=== PATIENT | male | born 1970 | race Caucasian/White ===

== ENCOUNTER 2023-01-02 17:21 | Inpatient (IN) ==
[2023-01-02] MEDS ORDERED: PIPERACILLIN/TAZOBACTAM 4.5 GM/120 ML BAG IV ONE (18:03)
[2023-01-02] MEDS ORDERED: VANCOMYCIN HCL 1,750 MG in SODIUM CHLORIDE 0.9% 500 ML IV ONE (18:03)
[2023-01-02] MEDS ORDERED: VANCOMYCIN CONSULT ACTIVE PRN ×2 (18:03→23:18)
--- NOTE | 2023-01-02 18:17 | Emergency Department Note ---
ED Provider Note History of Present Illness Chief Complaint: Referred by Doctor Stated Complaint: REPEAT CHEST XRAY, Time Seen by Provider: 01/02/23 17:28 Source: patient Mode of arrival: ambulatory Limitations: no limitations This patient is a 52-year-old male who presents to the emergency department for repeat chest x-ray. Patient reports that he was seen here late night/early Tuesday morning when he was run over by a lawn aerator and sustained puncture wounds to the right forearm and the back. He was called after discharge and told that his CT showed a small pneumothorax and was recommended to come back for a repeat x-ray in 24 to 48 hours. Patient states that he is not having any chest pain or shortness of breath. He does state that the wound on his right arm has had some drainage from it and he is now having redness of his right arm as well. He states it does feel swollen, tight and painful. He denies any fever/chills. He states the wound on his back appears to be healing well. Home Medications Medication Instructions Recorded Confirmed Type clonazepam 0.5 mg tablet 0.5 mg PO DAILY PRN Anxiety 05/13/22 01/02/23 History ibuprofen 200 mg tablet 400 mg PO Q6H PRN Pain 05/13/22 01/02/23 History sertraline 100 mg tablet 100 mg PO DAILY 05/13/22 01/02/23 History amoxicillin 875 mg-potassium 1 tab PO BID #14 tabs 12/31/22 01/02/23 Rx clavulanate 125 mg tablet oxycodone-acetaminophen 5 mg-325 1 tab PO Q6H PRN pain #14 tabs 12/31/22 01/02/23 Rx mg tablet (Percocet) Allergies Allergy/AdvReac Type Severity Reaction Status Date / Time No Known Allergies Allergy Verified 01/02/23 19:14 Past Med/Surg History Surgical History History of intestinal surgery bowel obstruction in 2013 Family History Other No significant family history Social History (Updated 01/02/23 @ 21:37 by Genesis Mcfadden DO) Smoking Status: Never smoker Hx Alcohol Use: Yes (2-3 beers daily) Alcohol type: beer Preferred Language: Albanian Feels Safe at Home: Yes Physical Exam Vital Signs Vital Signs - 24 hr 01/02/23 17:23 01/02/23 22:00 Temperature 36.6 C Temperature Source Temporal Artery Scan Pulse Rate 72 Pulse Rate [Apical] 68 Pulse Rhythm Regular Pulse Strength Normal Respiratory Rate 18 17 Respiratory Effort / Characteristics Non-Labored Spontaneous Respiratory Depth Normal Respiratory Pattern Regular Blood Pressure 122/85 Blood Pressure [Right Arm] 122/74 Blood Pressure Mean 97 Blood Pressure Mean [Right Arm] 90 Blood Pressure Position Sitting Pulse Oximetry 97 98 Oxygen Delivery Method Room Air Sepsis Recent Fever Within 48 Hours No Sepsis New/Unexplained Change in Mental Status No Sepsis Action Taken by Nursing No Action Required VITALS: Vitals are noted on the nurse's note and reviewed by myself. GENERAL: This is a 52-year-old male, in no acute distress, well-developed well- nourished. SKIN: There is a puncture wound on the right forearm with purulent drainage. There is surrounding erythema which extends from the distal forearm to the proximal upper arm. HEART: Regular rate and rhythm without murmurs gallops or rubs. LUNGS: Clear to auscultation bilaterally without wheezes, rales or rhonchi. MUSCULOSKELETAL: Full range of motion of the right upper extremity. Radial pulse 2+. NEURO: Patient was alert and oriented to person place and time. Distal sensation intact. Course Administered Medications Discontinued Medications Piperacillin Sod/Tazobactam Sod (Zosyn) 4.5 gm in 120 mls @ 240 mls/hr IV NOW ONE Stop: 01/02/23 18:32 Last Infusion: 01/02/23 19:13 Dose: 0 mls/hr Documented By: Admin: 01/02/23 18:35 Dose: 240 mls/hr Documented By: KALYN Vancomycin HCl 1,750 mg/ (Sodium Chloride) 535 mls @ 200 mls/hr IV NOW ONE Stop: 01/02/23 20:43 Last Admin: 01/02/23 19:22 Dose: 200 mls/hr Documented By: AROLDO Medical Decision Making Differential Diagnosis Cellulitis, abscess, MRSA infection, DVT, necrotizing fasciitis, dermatitis, drug eruption, allergic reaction, as well as other pathologies. Home Medications was personally reviewed by me Laboratory Data Attestation: I reviewed the patient's lab results. 01/02/23 18:21 01/02/23 18:21 Lab Results 01/02/23 01/02/23 Range/Units 18:21 18:21 WBC 7.87 (4.8-10.8) K/ul RBC 4.16 L (4.70-6.10) M/uL Hgb 13.4 L (14.0-18.0) g/dl Hct 38.3 L (42.0-52.0) % MCV 92.1 (80.0-100.0) fL MCH 32.2 (25.0-34.0) pg MCHC 35.0 (32.0-36.0) g/dL RDW Std Deviation 40.5 (36.4-46.3) fL RDW Coeff of Ivy 12.0 (11.5-14.5) % Plt Count 151 (130-400) K/uL MPV 10.4 (9.4-12.4) fL Immature Gran % (Auto) 0.5 % Neut % (Auto) 81.3 % Lymph % (Auto) 11.7 % [place] % (Auto) 5.7 % Eos % (Auto) 0.3 % Baso % (Auto) 0.5 % Neut # (Auto) 6.40 (1.40-6.50) K/uL Lymph # (Auto) 0.92 L (1.2-3.4) K/uL [place] # (Auto) 0.45 (0.11-0.59) K/uL Eos # (Auto) 0.02 (0-0.50) K/uL Baso # (Auto) 0.04 (0-0.2) K/uL Immature Gran # (Auto) 0.04 (0.01-0.20) K/uL Sodium 136 (136-145) mmol/L Potassium 4.0 (3.5-5.1) mmol/L Chloride 105 (98-107) mmol/L Carbon Dioxide 23 (21-32) mmol/L Anion Gap 8 (3-11) BUN 9 (6-23) mg/dl Creatinine 0.76 (0.6-1.4) mg/dl Est Cr Clr Drug Dosing 126.2 ml/min Est GFR ( Amer) 122.4 ml/min Est GFR (Non-Af Amer) 105.6 ml/min BUN/Creatinine Ratio 11.8 (10-20) Glucose 98 (70-99(Fasting)) mg/dl Calcium 9.3 (8.6-10.3) mg/dl Total Bilirubin 0.9 (0.2-1.0) mg/dl AST 27 (13-39) U/L ALT 25 (7-52) U/L Alkaline Phosphatase 65 (34-104) U/L Total Protein 7.4 (6.0-8.3) gm/dl Albumin 4.2 (3.4-5.0) gm/dl Globulin 3.2 (2.5-4.0) gm/dl Albumin/Globulin Ratio 1.3 (0.9-2) Imaging Data Attestation: I personally reviewed and interpreted this imaging study as follows: Radiologist's Impression: Chest X-Ray 01/02/23 18:14 XR chest 2V PA/lateral CLINICAL HISTORY: eval pneumothorax from 12/31 TECHNIQUE: 2 views of the chest were obtained. Comparison: Comparison is made to chest radiograph 12/30/2022 FINDINGS: No lines and tubes are seen. The cardiomediastinal silhouette is normal. Lungs are underinflated but clear. No evidence of pleural effusion or pneumothorax. IMPRESSION: No acute chest disease. ACT 112: Negative or not required by law. Electronically signed by: Vito Aparicio M.D. 01/02/2023 7:08 PM MDM Narrative This patient is a 52-year-old male who presents to the emergency department for evaluation of right forearm infection and recheck of a chest x-ray. Patient was here 2 days ago after an injury. At that time he was found to have a small apical pneumothorax on CT. He was referred back for a repeat chest x-ray today. This was performed and reviewed by radiology with no pneumothorax noted. However, patient did sustain a puncture wound to the right forearm which now appears to be infected. Patient is currently on Augmentin for infection pro phylaxis and given the development of an extensive cellulitis covering most of the arm, I do think that admission for IV antibiotics is necessary. Patient was given IV Zosyn and vancomycin. Orthopedics was consulted and did recommend medical admission and will consult on the patient tomorrow. I spoke with the [facility] hospitalist service, who agreed to evaluate patient for further care. Impression Cellulitis of forearm, right, Failure of outpatient treatment Discharge Plan Visit Data Chief Complaint: Referred by Doctor Stated Complaint: REPEAT CHEST XRAY, ED Provider: Jayme Hutchinson ED Midlevel Provider: Ada Escalera Discharge Problem: Cellulitis of forearm, right, Failure of outpatient treatment Forms Stand Alone Forms: [facility] Prescriptions Prescriptions: No Action amoxicillin-pot clavulanate 875-125 mg tablet 1 tab PO BID Qty: 14 0RF oxycodone-acetaminophen [Percocet] 5-325 mg tablet 1 tab PO Q6H PRN (Reason: pain) Qty: 14 0RF clonazepam 0.5 mg tablet 0.5 mg PO DAILY PRN (Reason: Anxiety) sertraline 100 mg tablet 100 mg PO DAILY ibuprofen 200 mg Tablet 400 mg PO Q6H PRN (Reason: Pain) Referrals Referrals: Krissy Lance DO [Primary Care Provider] -
[2023-01-02 18:48] LABS: Basophils # (auto) 0.04 K/uL (0-0.2); Basophils % (auto) 0.5 %; Eosinophils # (auto) 0.02 K/uL (0-0.50); Eosinophils % (auto) 0.3 %; Hematocrit (blood only) 38.3 % (42.0-52.0); Hemoglobin 13.4 g/dl (14.0-18.0); Immature Granulocytes # (auto) 0.04 K/uL (0.01-0.20); Immature Granulocytes % (auto) 0.5 %; Lymphocytes # (auto) 0.92 K/uL (1.2-3.4); Lymphocytes % (auto) 11.7 %; Mean Corpuscular Hemoglobin 32.2 pg (25.0-34.0); Mean Corpuscular Volume 92.1 fL (80.0-100.0); Mean Platelet Volume 10.4 fL (9.4-12.4); Monocytes # (auto) 0.45 K/uL (0.11-0.59); Monocytes % (auto) 5.7 %; Neutrophils % (auto) 81.3 %; Platelet Count 151 K/uL (130-400); RDW Standard Deviation 40.5 fL (36.4-46.3); Red Blood Count 4.16 M/uL (4.70-6.10); White Blood Count 7.87 K/ul (4.8-10.8)
[2023-01-02 19:02] LABS: Albumin Globulin Ratio 1.3 (0.9-2); Albumin Level 4.2 gm/dl (3.4-5.0); BUN Creatinine Ratio 11.8 (10-20); Bilirubin,Total 0.9 mg/dl (0.2-1.0); Calcium 9.3 mg/dl (8.6-10.3); Creatinine Clr Calc Pharmacy 126.2 ml/min; Est GFR (African American) 122.4 ml/min; Est GFR (Non-African American) 105.6 ml/min; Globulin 3.2 gm/dl (2.5-4.0); Total Protein 7.4 gm/dl (6.0-8.3)
--- NOTE | 2023-01-02 19:09 | XRay Report ---
XR chest 2V PA/lateral CLINICAL HISTORY: eval pneumothorax from 12/31 TECHNIQUE: 2 views of the chest were obtained. Comparison: Comparison is made to chest radiograph 12/30/2022 FINDINGS: No lines and tubes are seen. The cardiomediastinal silhouette is normal. Lungs are underinflated but clear. No evidence of pleural effusion or pneumothorax. IMPRESSION: No acute chest disease. ACT 112: Negative or not required by law. Electronically signed by: Vito Aparicio M.D. 01/02/2023 7:08 PM
--- NOTE | 2023-01-02 20:49 | History & Physical Report ---
Date of Service January 02, 2023 Assessment & Plan (1) Puncture wound: Plan: 52yo male with recent gardening accident involving a spike aerator resulting in puncture wound to right back and right forearm returns with worsening redness, swelling and streaking up the arm after being on Augmentin at home x 2 days. Patient is afebrile, HD stable and nontoxic in appearance. Wound on right arm with purulent drainage expressed. -Admit to medical -Monitor area of redness - patient reports that redness has improved since receiving antibiotics -Vancomycin and Zosyn -Wound care BID and PRN -Percocet and Ibuprofen as needed for pain -Orthopedic Surgery consultation appreciated (2) Pneumothorax: Plan: Trace apical pneumothorax noted on CT imaging from 12/30/22. Repeat CXR today is normal. Patient denies chest pain, pleuritic pain or SOB (3) Anxiety: Plan: Chronic. Stable -Continue Clonazepam -Continue Sertraline Patient is a daily drinker. No history of withdrawals. Monitor F/E/N - Heplock. Electrolytes WNL. NPO after midnight for possible OR Ppx - Low risk for DVT. Encourage ambulation with assistance as needed Code - Full per discussion with patient Dispo - Admit to medical History of Present Illness Chief Complaint: RUE wound, cellulitis Primary Care Provider: Krissy Lance DO Julio Maxwell is a pleasant 52yo male with no significant past medical history presenting with RUE cellulitis. On 12/30/22 PM patient was doing some yard work when a spike aerator accidentally rolled over him. He reports that his right arm got stuck and he pulled it out from the aerator causing a wound in the right forearm as well as a puncture wound to the right back. He was seen in the ER and had the wounds thoroughly irrigated. He was treated with a tetanus shot, NSS, pain control with Tylenol, Fentanyl, Toradol and received a dose of Cefazolin. He was discharged home with Oxycodone/Acetaminophen and Augmentin. He had a CT of the chest which was noted to have a trace right apical pneumothorax. Patient returns to the ER this evening for repeat CXR to followup on the previously noted pneumothorax. He does note increased redness of the forearm with streaking up the medial arm as well as increased swelling of the forearm. He has been changing his dressings at home and has had some purulent discharge. He denies chest pain, SOB, cough or pleuritic pain. Denies fever, chills, malaise, nausea. He took a Percocet at 18:30 but is having some increased pain at present. In the ER he is afebrile, HD stable, NAD ER Course: Vancomycin Zosyn Allergies Allergy/AdvReac Type Severity Reaction Status Date / Time No Known Allergies Allergy Verified 01/02/23 19:14 Home Medications Medication Instructions Recorded Confirmed Type clonazepam 0.5 mg tablet 0.5 mg PO DAILY PRN Anxiety 05/13/22 01/02/23 History ibuprofen 200 mg tablet 400 mg PO Q6H PRN Pain 05/13/22 01/02/23 History sertraline 100 mg tablet 100 mg PO DAILY 05/13/22 01/02/23 History amoxicillin 875 mg-potassium 1 tab PO BID #14 tabs 12/31/22 01/02/23 Rx clavulanate 125 mg tablet oxycodone-acetaminophen 5 mg-325 1 tab PO Q6H PRN pain #14 tabs 12/31/22 01/02/23 Rx mg tablet (Percocet) Past Med/Surg History Surgical History History of intestinal surgery bowel obstruction in 2013 Family History Other No significant family history Social History (Updated 01/02/23 @ 21:37 by Genesis Mcfadden DO) Smoking Status: Never smoker Hx Alcohol Use: Yes (2-3 beers daily) Alcohol type: beer Preferred Language: Honduran Feels Safe at Home: Yes Review of Systems Review of Systems: All systems reviewed & are unremarkable except as noted in HPI & below Physical Exam Physical Exam: General: patient resting comfortably, NAD, non-toxic in appearance, AA&O x 4 Skin: warm, dry HEENT: NC/AT, PERRL, EOMI, anicteric sclera, conjunctiva without injection, external ear normal to inspection and nontender, nares patent, moist mucus membranes, dentition intact, no oropharyngeal lesions, neck supple, trachea midline, no LAD, no thyromegaly, no JVD Heart: +S1/S2, regular, no m/r/g Lungs: equal air entry bilaterally, no rales/rhonchi/wheezes Abd: +BS, soft, NT/ND, no masses/organomegaly/ascites Ext: warm, 2+ pulses in UE/LE bilaterally, no clubbing/cyanosis or edema Neuro: nonfocal, patient AA&O x 4, speech intact, no facial droop, moving all extremities on command with equal strength 5/5 RUE with dressing in place. Puncture wound with small amount of purulent drainage. Surrounding erythema with redness of the forearm, streaking redness up medial arm. No crepitus, bullae. Loose dressing placed. Dressing present on right back Results & Data Results & Data Vital Signs (Past 12 Hours) Vital Signs Temp Pulse Resp BP Pulse Ox O2 Del Method 01/02/23 17:23 36.6 C 72 18 122/85 97 Room Air Laboratory Results Laboratory Results WBC 7.87 K/ul (4.8-10.8) 01/02/23 18:21 RBC 4.16 M/uL (4.70-6.10) L 01/02/23 18:21 Hgb 13.4 g/dl (14.0-18.0) L 01/02/23 18:21 Hct 38.3 % (42.0-52.0) L 01/02/23 18:21 MCV 92.1 fL (80.0-100.0) 01/02/23 18:21 MCH 32.2 pg (25.0-34.0) 01/02/23 18:21 MCHC 35.0 g/dL (32.0-36.0) 01/02/23 18:21 RDW Std Deviation 40.5 fL (36.4-46.3) 01/02/23 18:21 RDW Coeff of Ivy 12.0 % (11.5-14.5) 01/02/23 18:21 Plt Count 151 K/uL (130-400) 01/02/23 18:21 MPV 10.4 fL (9.4-12.4) 01/02/23 18:21 Immature Gran % (Auto) 0.5 % 01/02/23 18:21 Neut % (Auto) 81.3 % 01/02/23 18:21 Lymph % (Auto) 11.7 % 01/02/23 18:21 [place] % (Auto) 5.7 % 01/02/23 18:21 Eos % (Auto) 0.3 % 01/02/23 18:21 Baso % (Auto) 0.5 % 01/02/23 18:21 Neut # (Auto) 6.40 K/uL (1.40-6.50) 01/02/23 18:21 Lymph # (Auto) 0.92 K/uL (1.2-3.4) L 01/02/23 18:21 [place] # (Auto) 0.45 K/uL (0.11-0.59) 01/02/23 18:21 Eos # (Auto) 0.02 K/uL (0-0.50) 01/02/23 18:21 Baso # (Auto) 0.04 K/uL (0-0.2) 01/02/23 18:21 Immature Gran # (Auto) 0.04 K/uL (0.01-0.20) 01/02/23 18:21 Sodium 136 mmol/L (136-145) 01/02/23 18:21 Potassium 4.0 mmol/L (3.5-5.1) 01/02/23 18:21 Chloride 105 mmol/L (98-107) 01/02/23 18:21 Carbon Dioxide 23 mmol/L (21-32) 01/02/23 18:21 Anion Gap 8 (3-11) 01/02/23 18:21 BUN 9 mg/dl (6-23) 01/02/23 18:21 Creatinine 0.76 mg/dl (0.6-1.4) 01/02/23 18:21 Est Cr Clr Drug Dosing 126.2 ml/min 01/02/23 18:21 Est GFR ( Amer) 122.4 ml/min 01/02/23 18:21 Est GFR (Non-Af Amer) 105.6 ml/min 01/02/23 18:21 BUN/Creatinine Ratio 11.8 (10-20) 01/02/23 18:21 Glucose 98 mg/dl (70-99(Fasting)) 01/02/23 18:21 Calcium 9.3 mg/dl (8.6-10.3) 01/02/23 18:21 Total Bilirubin 0.9 mg/dl (0.2-1.0) 01/02/23 18:21 AST 27 U/L (13-39) 01/02/23 18:21 ALT 25 U/L (7-52) 01/02/23 18:21 Alkaline Phosphatase 65 U/L (34-104) 01/02/23 18:21 Total Protein 7.4 gm/dl (6.0-8.3) 01/02/23 18:21 Albumin 4.2 gm/dl (3.4-5.0) 01/02/23 18:21 Globulin 3.2 gm/dl (2.5-4.0) 01/02/23 18:21 Albumin/Globulin Ratio 1.3 (0.9-2) 01/02/23 18:21 Impressions Chest X-Ray 01/02/23 18:14 XR chest 2V PA/lateral CLINICAL HISTORY: eval pneumothorax from 12/31 TECHNIQUE: 2 views of the chest were obtained. Comparison: Comparison is made to chest radiograph 12/30/2022 FINDINGS: No lines and tubes are seen. The cardiomediastinal silhouette is normal. Lungs are underinflated but clear. No evidence of pleural effusion or pneumothorax. IMPRESSION: No acute chest disease. ACT 112: Negative or not required by law. Electronically signed by: Vito Aparicio M.D. 01/02/2023 7:08 PM PG Care Time/CCT Total # of Minutes Spent Total Time Spent with Patient: Total time spent is greater than 50% in coordination of care (as documented) at patient's floor/unit and/or counseling patient: Coding Level of Care Code 53872 INT INP/OBS CARE 2/55MIN Diagnoses Puncture wound T14.8XXA Pneumothorax J93.9 Anxiety F41.9
[2023-01-02] MEDS ORDERED: POLYETHYLENE (MIRALAX) 17 GM PACK PO PRN (23:18)
[2023-01-02] MEDS ORDERED: VANCOMYCIN HCL 1,000 MG in SODIUM CHLORIDE 0.9% 250 ML IV SCH (23:18)
[2023-01-02] MEDS ORDERED: clonazePAM 0.5 MG TAB PO PRN (23:18)
[2023-01-02] MEDS ORDERED: ONDANSETRON INJ 2 MG/ML 2 ML VIAL IV PRN (23:18)
[2023-01-03] MEDS: PIPERACILLIN/TAZOBACTAM 4.5 GM in DEXTROSE 5% 100 ML IV SCH ×3 (00:04→16:30)
[2023-01-03] MEDS: VANCOMYCIN HCL 1,500 MG in SODIUM CHLORIDE 0.9% 500 ML IV SCH ×2 (04:56→16:30)
[2023-01-03] MEDS: oxyCODONE/ACETAMINOPHEN 5mg/325mg TAB PO PRN ×3 (07:40→20:50)
[2023-01-03] MEDS: SERTRALINE HCL 100 MG TABLET PO SCH (07:41)
--- NOTE | 2023-01-03 07:57 | Hospitalist Progress Note ---
Date of Service January 03, 2023 Assessment & Plan (1) Puncture wound: Plan: 52yo male with recent gardening accident involving a spike aerator resulting in puncture wound to right back and right forearm returns with worsening redness, swelling and streaking up the arm after being on Augmentin at home x 2 days. Patient is afebrile, HD stable and nontoxic in appearance. Wound on right arm with purulent drainage expressed. Cx from arm gram negative bacilli x 2 Blood cultures pending On Vancomycin/Zosyn (Augmentin from ER at home) WBC wnl, afebrile. Monitor area of redness - patient reports that redness has improved since receiving antibiotics Pain control Wound care Orthopedics consulted -- messaged Dr Stearns this morning as patient NPO and no CT imaging for further eval. One of colleagues to see this morning, to hold off on further imaging until they see him and added IVF while NPO this morning Eval by orthopedics, Dr Savage --> No need for intervention/I&D with orthopedics, continue IV abx Diet ordered, IVF to be discontinued Monitor final cx from ER/tailor abx as able If blood cultures remain NGTD could consider discharge on PO abx tomorrow and f/u outpatient (2) Pneumothorax: Plan: Trace apical pneumothorax noted on CT imaging from 12/30/22. Repeat CXR today is normal. Patient denies chest pain, pleuritic pain or SOB 98% on RA (3) Anxiety: Plan: Chronic. Stable Continue Clonazepam Continue Sertraline Patient is a daily drinker. No history of withdrawals. Monitor -Can add AWSS at risk protocol in meantime. Will give dose thiamine IV x 1, start PO B12/folate Plan continued inpatient stay, monitor cultures/tailor abx as able Admission and Anticipated Discharge Date Admission Date: January 02, 2023 Supervising Physician Co-Signing Physician Notes PA Supervision Note: I did not personally see or examine the patient. I verified all figueroa points and agree with VICKY Damon with the following exceptions and/or additions: none Subjective EValuated this morning around 11am, pain/redness much improved. Eval by ortho, no I&D needed. Diet ordered for lunch Discussed monitoring cx from ER and if blood cultures remain negative tomorrow and cx finalized can consider dc on oral abx. No fever/chills, chest pain, shortness of breath, abdominal pain, nausea or other symptoms at this time. Questions/concerns addressed. PCP is Krissy Lance for follow up. Review of Systems Review of Systems: All systems reviewed & are unremarkable except as noted in HPI & below Physical Exam Physical Exam: General: WD/WN male sitting up in bed, NAD HEENT: head normocephalic, atraumatic, mmm, trachea midline Resp; CTA, no w/c/r, on room air CV: RRR, slightly bradycardic to the upper 40s, no significant m/r/g or pitting edema GI: +BS, soft/nt ; no chavarria MSK/Neuro: no focal deficit Dressing removed to RIGHT elbow/posterior arm with puncture wound, no significant surrounding cellulitis, scant purulent drainage, also noted on dressing. no streaking/significant warmth. ROM intact. Psych: AOx3, cooperative with exam Results & Data Results & Data Vital Signs (Past 12 Hours) Vital Signs Temp Pulse Pulse Pulse Resp BP BP 01/03/23 07:15 36.5 C 47 L 16 110/70 01/02/23 23:15 01/02/23 23:15 01/02/23 23:15 37 C 58 L 20 129/73 01/02/23 23:01 58 L 16 129/80 01/02/23 22:00 68 17 122/74 Pulse Ox O2 Del Method 01/03/23 07:15 98 Room Air 01/02/23 23:15 Room Air 01/02/23 23:15 Room Air 01/02/23 23:15 96 Room Air 01/02/23 23:01 98 Room Air 01/02/23 22:00 98 Laboratory Results 01/03/23 01/03/23 01/02/23 Range/Units 07:17 07:17 18:21 WBC 5.11 (4.8-10.8) K/ul RBC 3.91 L (4.70-6.10) M/uL Hgb 12.5 L (14.0-18.0) g/dl Hct 36.2 L (42.0-52.0) % MCV 92.6 (80.0-100.0) fL MCH 32.0 (25.0-34.0) pg MCHC 34.5 (32.0-36.0) g/dL RDW Std Deviation 41.0 (36.4-46.3) fL RDW Coeff of Ivy 12.0 (11.5-14.5) % Plt Count 152 (130-400) K/uL MPV 10.5 (9.4-12.4) fL Immature Gran % (Auto) % Neut % (Auto) % Lymph % (Auto) % [place] % (Auto) % Eos % (Auto) % Baso % (Auto) % Neut # (Auto) (1.40-6.50) K/uL Lymph # (Auto) (1.2-3.4) K/uL [place] # (Auto) (0.11-0.59) K/uL Eos # (Auto) (0-0.50) K/uL Baso # (Auto) (0-0.2) K/uL Immature Gran # (Auto) (0.01-0.20) K/uL Sodium 138 136 (136-145) mmol/L Potassium 3.5 4.0 (3.5-5.1) mmol/L Chloride 107 105 (98-107) mmol/L Carbon Dioxide 25 23 (21-32) mmol/L Anion Gap 6 8 (3-11) BUN 7 9 (6-23) mg/dl Creatinine 0.72 0.76 (0.6-1.4) mg/dl Est Cr Clr Drug Dosing 133.2 126.2 ml/min Est GFR ( Amer) 125.2 122.4 ml/min Est GFR (Non-Af Amer) 108.0 105.6 ml/min BUN/Creatinine Ratio 9.7 L 11.8 (10-20) Glucose 90 98 (70-99(Fasting)) mg/dl Calcium 8.6 9.3 (8.6-10.3) mg/dl Magnesium 1.9 (1.7-2.4) mg/dl Total Bilirubin 0.9 (0.2-1.0) mg/dl AST 27 (13-39) U/L ALT 25 (7-52) U/L Alkaline Phosphatase 65 (34-104) U/L Total Protein 7.4 (6.0-8.3) gm/dl Albumin 4.2 (3.4-5.0) gm/dl Globulin 3.2 (2.5-4.0) gm/dl Albumin/Globulin Ratio 1.3 (0.9-2) 01/02/23 Range/Units 18:21 WBC 7.87 (4.8-10.8) K/ul RBC 4.16 L (4.70-6.10) M/uL Hgb 13.4 L (14.0-18.0) g/dl Hct 38.3 L (42.0-52.0) % MCV 92.1 (80.0-100.0) fL MCH 32.2 (25.0-34.0) pg MCHC 35.0 (32.0-36.0) g/dL RDW Std Deviation 40.5 (36.4-46.3) fL RDW Coeff of Ivy 12.0 (11.5-14.5) % Plt Count 151 (130-400) K/uL MPV 10.4 (9.4-12.4) fL Immature Gran % (Auto) 0.5 % Neut % (Auto) 81.3 % Lymph % (Auto) 11.7 % [place] % (Auto) 5.7 % Eos % (Auto) 0.3 % Baso % (Auto) 0.5 % Neut # (Auto) 6.40 (1.40-6.50) K/uL Lymph # (Auto) 0.92 L (1.2-3.4) K/uL [place] # (Auto) 0.45 (0.11-0.59) K/uL Eos # (Auto) 0.02 (0-0.50) K/uL Baso # (Auto) 0.04 (0-0.2) K/uL Immature Gran # (Auto) 0.04 (0.01-0.20) K/uL Sodium (136-145) mmol/L Potassium (3.5-5.1) mmol/L Chloride (98-107) mmol/L Carbon Dioxide (21-32) mmol/L Anion Gap (3-11) BUN (6-23) mg/dl Creatinine (0.6-1.4) mg/dl Est Cr Clr Drug Dosing ml/min Est GFR ( Amer) ml/min Est GFR (Non-Af Amer) ml/min BUN/Creatinine Ratio (10-20) Glucose (70-99(Fasting)) mg/dl Calcium (8.6-10.3) mg/dl Magnesium (1.7-2.4) mg/dl Total Bilirubin (0.2-1.0) mg/dl AST (13-39) U/L ALT (7-52) U/L Alkaline Phosphatase (34-104) U/L Total Protein (6.0-8.3) gm/dl Albumin (3.4-5.0) gm/dl Globulin (2.5-4.0) gm/dl Albumin/Globulin Ratio (0.9-2) Diagnostic Findings Chest X-Ray 01/02/23 18:14 XR chest 2V PA/lateral CLINICAL HISTORY: eval pneumothorax from 12/31 TECHNIQUE: 2 views of the chest were obtained. Comparison: Comparison is made to chest radiograph 12/30/2022 FINDINGS: No lines and tubes are seen. The cardiomediastinal silhouette is normal. Lungs are underinflated but clear. No evidence of pleural effusion or pneumothorax. IMPRESSION: No acute chest disease. ACT 112: Negative or not required by law. Electronically signed by: Vito Aparicio M.D. 01/02/2023 7:08 PM PG Care Time/CCT Total # of Minutes Spent Total Time Spent with Patient: Total time spent is greater than 50% in coordination of care (as documented) at patient's floor/unit and/or counseling patient: Coding Level of Care Code 28506 SUB INP/OBS CARE 3/50MIN Diagnoses Puncture wound T14.8XXA Pneumothorax J93.9 Anxiety F41.9
[2023-01-03 08:03] LABS: Hematocrit (blood only) 36.2 % (42.0-52.0); Hemoglobin 12.5 g/dl (14.0-18.0); Mean Corpuscular Hgb Conc 34.5 g/dL (32.0-36.0); Mean Corpuscular Volume 92.6 fL (80.0-100.0); Mean Platelet Volume 10.5 fL (9.4-12.4); Platelet Count 152 K/uL (130-400); Red Blood Count 3.91 M/uL (4.70-6.10); White Blood Count 5.11 K/ul (4.8-10.8)
[2023-01-03 08:20] LABS: BUN Creatinine Ratio 9.7 (10-20); Calcium 8.6 mg/dl (8.6-10.3); Creatinine Clr Calc Pharmacy 133.2 ml/min; Est GFR (African American) 125.2 ml/min; Potassium 3.5 mmol/L (3.5-5.1)
[2023-01-03] MEDS ORDERED: NSS + 20MEQ KCL 20 MEQ/1,000 ML BAG IV SCH (08:45)
[2023-01-03 09:32] LABS: Magnesium 1.9 mg/dl (1.7-2.4)
--- NOTE | 2023-01-03 09:50 | Pharmacy Report ---
Pharmacy PK ABX Note - Date of Service January 03, 2023 - Assessment and Plan Assessment * Mr Maxwell is a 52 year old M receiving vancomycin/Zosyn for treatment of RUE wound/cellulitis after recent gardening accident. * Orthopedic surgery consult pending. * Pertinent microbiologic data includes: R arm culture growing: gram neg bacilli x2, BCx pending * Pt received 2 days of Augmentin prior to arrival. Plan Vancomycin * Loading dose: 1750 mg IV x 1 * Maintenance dose: 1500 mg IV every 12 hours * Regimen is predicted to achieve target AUC/JOVANI of 400-600 mg/L.hr * Will evaluate a vanc level tomorrow afternoon if pt remains on therapy. Zosyn 4.5gm IV q8h Pharmacy will continue to follow and will adjust dose/frequency as necessary. Thank you. Pharmacy has transitioned to AUC monitoring for vancomycin. AUC/JOVANI is the preferred PK/PD target and is associated with decreased risk of nephrotoxicity compared to traditional trough targets.
--- NOTE | 2023-01-03 10:22 | Orthopedic Consultation ---
Date of Consultation January 03, 2023 Assessment & Plan (1) Puncture wound: 52yo male with recent gardening accident on 12/30/2022 involving a spike aerator resulting in puncture wound to right back and right forearm returns with worsening redness, swelling and streaking up the arm after being on Augmentin at home x 2 days. Patient was admitted and placed on Vancomycin and Zoysn. He is afebrile. WBC is WNL. Patient states the erythema and swelling are continuing to improve since taking IV abx.Patient denies any significant pain. He feels he is continuing to improve. Normal ROM of RUE. Scant drainage noted from puncture wound on exam. Patient is continuing to improve. At this time, I&D of RUE not warranted. Continue with daily dry dressings and monitoring the area. Orthopedics will sign-off. Re-consult to orthopedics if new or worsening issues arise. History of Present Illness Attending Physician: Ashwini Montes, History of Present Illness 52yo male with recent gardening accident involving a spike aerator resulting in puncture wound to right back and right forearm. Orthopedics consulted for evaluation of possible I&D of RUE puncture wound. Patient states since having Zoysn and Vancomycin his erythema and swelling have improved. He denies any significant pain. He denies fever or chills. He states he has had continued drainage from his puncture wound of the RUE. Dry dressing over the area. Injury occurred on 12/30/2022. Patient was placed on Augmentin and discharged from ER. Returned for repeat CXR and had increased erythema and swelling of the RUE. Due to this patient was admitted and placed on Zoysn and vancomycin. Allergies Allergy/AdvReac Type Severity Reaction Status Date / Time No Known Allergies Allergy Verified 01/02/23 19:14 Home Medications Medication Instructions Recorded Confirmed Type clonazepam 0.5 mg tablet 0.5 mg PO DAILY PRN Anxiety 05/13/22 01/02/23 History ibuprofen 200 mg tablet 400 mg PO Q6H PRN Pain 05/13/22 01/02/23 History sertraline 100 mg tablet 100 mg PO DAILY 05/13/22 01/02/23 History amoxicillin 875 mg-potassium 1 tab PO BID #14 tabs 12/31/22 01/02/23 Rx clavulanate 125 mg tablet oxycodone-acetaminophen 5 mg-325 1 tab PO Q6H PRN pain #14 tabs 12/31/22 01/02/23 Rx mg tablet (Percocet) Patient History Surgical History History of intestinal surgery bowel obstruction in 2013 Family History Other No significant family history Social History (Updated 01/02/23 @ 21:37 by Genesis Mcfadden DO) Smoking Status: Former smoker Tobacco Type: Cigarettes Cigarettes Per Day: 20 during night, 10 during day. (Was in his 20's).; Second Hand Exposure: No; Do You Dip or Chew Tobacco: No; Tobacco Cessation Education Requested by Patient: No Hx Alcohol Use: Yes Alcohol type: beer Hx Substance Use: No Preferred Language: Turkmen Communication Ability: Effective Ward Maid Required: No Beliefs That Will Affect Care: None Current Living Situation: Significant Other Other Information That Helps Us Care for You: No Feels Safe at Home: Yes Safety Concerns: Feels Safe At This Time Assistive Devices: Glasses Assistive Devices Comment: Reading glasses. Physical Exam Physical Exam: General: patient resting comfortably, NAD, non-toxic in appearance, AA&O x 4 Skin: warm, dry M/S: RUE with dressing in place. Puncture wound with scant drainage noted. No erythema or significant edema noted. Patient has normal ROM of his RUE. Normal teacher of the hearing impaired strength. +2/4 radial and ulnar pulses noted. Results & Data Vital Signs (Past 12 Hours) Vital Signs Temp Pulse Pulse Resp BP BP Pulse Ox 01/03/23 08:00 01/03/23 07:15 36.5 C 47 L 16 110/70 98 01/02/23 23:15 01/02/23 23:15 01/02/23 23:15 37 C 58 L 20 129/73 96 01/02/23 23:01 58 L 16 129/80 98 O2 Del Method 01/03/23 08:00 Room Air 01/03/23 07:15 Room Air 01/02/23 23:15 Room Air 01/02/23 23:15 Room Air 01/02/23 23:15 Room Air 01/02/23 23:01 Room Air
[2023-01-03] MEDS ORDERED: LORazepam 1 MG TAB PO PRN (11:20)
[2023-01-03] MEDS ORDERED: THIAMINE HCL 100 MG in SYRINGE 9 ML IV STA (11:21)
[2023-01-03] MEDS: FAMOTIDINE 20 MG in SYRINGE 3 ML IV SCH (18:15)
[2023-01-04] MEDS: IBUPROFEN 200 MG TAB PO PRN ×2 (01:03→20:09)
[2023-01-04] MEDS: PIPERACILLIN/TAZOBACTAM 4.5 GM in DEXTROSE 5% 100 ML IV SCH ×3 (01:03→19:01)
[2023-01-04] MEDS: VANCOMYCIN HCL 1,500 MG in SODIUM CHLORIDE 0.9% 500 ML IV SCH ×2 (04:15→15:35)
[2023-01-04 08:29] LABS: Hematocrit (blood only) 33.9 % (42.0-52.0); Hemoglobin 11.7 g/dl (14.0-18.0); Mean Corpuscular Hemoglobin 31.9 pg (25.0-34.0); Mean Corpuscular Hgb Conc 34.5 g/dL (32.0-36.0); Mean Corpuscular Volume 92.4 fL (80.0-100.0); Mean Platelet Volume 10.4 fL (9.4-12.4); Platelet Count 169 K/uL (130-400); RDW Coefficient of Variation 11.9 % (11.5-14.5); RDW Standard Deviation 40.6 fL (36.4-46.3); Red Blood Count 3.67 M/uL (4.70-6.10); White Blood Count 4.29 K/ul (4.8-10.8)
--- NOTE | 2023-01-04 08:33 | Hospitalist Progress Note ---
Date of Service January 04, 2023 Assessment & Plan (1) Cellulitis of forearm, right: Plan: Cellulitis of right forearm 52yo male with recent gardening accident involving a spike aerator resulting in puncture wound to right back and right forearm returns with worsening redness, swelling and streaking up the arm after being on Augmentin at home x 2 days. Patient is afebrile, HD stable and nontoxic in appearance. Wound on right arm with purulent drainage expressed. Cx from arm gram negative bacilli x 2--> Aeromonas hydrophila group, serratia marcescens on preliminary (MONITOR FINAL), resistant to augmentin Blood cultures remain NGTD, monitor for 48 hours prior to PO abx given procal to 12 WBC not elevated, no fever Ortho consulted - no I&D, continue abx, signed off Wound care Pain control -- dilaudid x 1, rib pain, lidocaine patch, incentive spirometer, turn/cough Continue IV abx Vanco/Zosyn given cx preliminary but suspect can continue IV Zosyn alone if finalized later today and plan to transition to PO abx to complete course tomorrow (2) Puncture wound: Plan: cause for cellulitis as above (3) Pneumothorax: Plan: Trace apical pneumothorax noted on CT imaging from 12/30/22, R posterior 10th rib fracture Repeat CXR on admission normal Remaining on room air but reporting rib pain today, no crepitus, checked CXR today no change in alignment of broken rib, no PTX, trace effusion/atelectasis Ordered IV pain control x 1 for now, lidocaine patch, incentive spirometer Monitor for worsening pain/follow up on imaging (4) Anxiety: Plan: Chronic. Stable Continue Clonazepam Continue Sertraline ALcohol use - Prior heavy use, most recent notes ~12pk a week Patient is a daily drinker. No history of withdrawals. Monitor AWSS protocol initiated. Given Thiamine IV x 1, started PO folate/B12 No evidence for DTs at present but willl need to monitor (5) Failure of outpatient treatment: Plan: failure of outpatient treatment due to bacteria/resistance to augmentin abx as above, will Plan continued inpatient stay, monitor cultures/tailor abx as able imaging for rib/chest discomfort given prior PTX, pain control hopeful dc tomorrow on PO FLQ if cultures finalized/blood cultures remaining negative Admission and Anticipated Discharge Date Admission Date: January 02, 2023 Supervising Physician Co-Signing Physician Notes PA Supervision Note: I did not personally see or examine the patient. I verified all figueroa points and agree with VICKY Damon with the following exceptions and/or additions: none Subjective Eval this morning, was initially hopeful for discharge. Discussed cultures and resistance to Augmentin and will plan for alternative PO abx for tomorrow. TOday he is reporting R sided rib pain, sight of prior fractures. Discussed cxr now, will order incentive spirometer and cough/deep breathing, lidocaine patch, one time dose Dilaudid for acute pain and monitor response. MOrphine in past given headache, had been using percocet at home for pain. Will continue inpatient stay No fever,chills, abdominal pain, nausea or other issue at present. Questions/concerns addressed. Physical Exam Physical Exam: General: WD/WN male sitting up in bed, mildly uncomfortable appearing, reporting R flank/rib pain in site of prior fractures Head normocephalic, atraumatic, mmm, trachea midline Resp: no cough, no wheezing/crackles, no crepitus, +tenderness to palpation RIG HT lower chest, on room air CV: regular, bradycardic to upper 40s, no significant edema GI: +BS, soft/NT ; no chavarria MSK/Neuro: no focal deficit RUE significant improvement, no further drainage/streaking, ROM intact Psych: AOx3, cooperative with exam Results & Data Results & Data Vital Signs (Past 12 Hours) Vital Signs Temp Pulse Resp BP Pulse Ox O2 Del Method 01/04/23 07:09 36.8 C 48 L 16 126/74 95 Room Air 01/03/23 21:28 36.8 C 50 L 16 117/71 97 Room Air Laboratory Results 01/04/23 01/04/23 Range/Units 07:50 07:50 WBC 4.29 L (4.8-10.8) K/ul RBC 3.67 L (4.70-6.10) M/uL Hgb 11.7 L (14.0-18.0) g/dl Hct 33.9 L (42.0-52.0) % MCV 92.4 (80.0-100.0) fL MCH 31.9 (25.0-34.0) pg MCHC 34.5 (32.0-36.0) g/dL RDW Std Deviation 40.6 (36.4-46.3) fL RDW Coeff of Ivy 11.9 (11.5-14.5) % Plt Count 169 (130-400) K/uL MPV 10.4 (9.4-12.4) fL Sodium 139 (136-145) mmol/L Potassium 3.4 L (3.5-5.1) mmol/L Chloride 108 H (98-107) mmol/L Carbon Dioxide 26 (21-32) mmol/L Anion Gap 5 (3-11) BUN 7 (6-23) mg/dl Creatinine 0.98 (0.6-1.4) mg/dl Est Cr Clr Drug Dosing 97.9 ml/min Est GFR ( Amer) 103.0 ml/min Est GFR (Non-Af Amer) 88.9 ml/min BUN/Creatinine Ratio 7.1 L (10-20) Glucose 86 (70-99(Fasting)) mg/dl Calcium 8.5 L (8.6-10.3) mg/dl Magnesium 1.9 (1.7-2.4) mg/dl Diagnostic Findings Ribs w/Chest X-Ray 01/04/23 11:21 XR ribs RT min 2V w CXR1V HISTORY: 52 years-old Male CHEST PAIN, BROKEN RIBS, HX PTX acute chest pain COMPARISON: 01/02/2023, 12/30/2022 TECHNIQUE: PA view of the chest with 4 views of the right ribs FINDINGS: Cardiomediastinal and hilar silhouettes are unchanged. Previously noted trace right pneumothorax is not definitively seen. Unchanged alignment of the uterus and mildly comminuted fractures of the posterior right 10th rib. No additional acute right-sided rib fractures identified. Trace right pleural effusion suggested with mild persistent atelectasis. Surgical suture material within the abdominal right upper quadrant. IMPRESSION: 1. Unchanged alignment of the acute right posterior 10th rib fracture. 2. No pneumothorax identified by radiography. 3. Trace right pleural effusion with minimal right basilar atelectasis. ACT 112: Negative or not required by law. The above report was generated using voice recognition software. It may contain grammatical, syntax or spelling errors. Electronically signed by: Niall Garza M.D. 01/04/2023 12:35 PM PG Care Time/CCT Total # of Minutes Spent Total Time Spent with Patient: Total time spent is greater than 50% in coordination of care (as documented) at patient's floor/unit and/or counseling patient: Coding Level of Care Code 97335 SUB INP/OBS CARE 2/35MIN Diagnoses Cellulitis of forearm, right L03.113 Puncture wound T14.8XXA Pneumothorax J93.9 Anxiety F41.9 Failure of outpatient treatment Z78.9
[2023-01-04 08:45] LABS: BUN Creatinine Ratio 7.1 (10-20); Calcium 8.5 mg/dl (8.6-10.3); Creatinine Clr Calc Pharmacy 97.9 ml/min; Est GFR (Non-African American) 88.9 ml/min; Magnesium 1.9 mg/dl (1.7-2.4); Potassium 3.4 mmol/L (3.5-5.1)
[2023-01-04] MEDS: FAMOTIDINE 20 MG in SYRINGE 3 ML IV SCH (09:06)
[2023-01-04] MEDS: CYANOCOBALAMIN (B-12) 500 MCG TABLET PO SCH (09:09)
[2023-01-04] MEDS: SERTRALINE HCL 100 MG TABLET PO SCH (09:09)
[2023-01-04] MEDS: FOLIC ACID 400 MCG TAB PO SCH (09:09)
[2023-01-04] MEDS ORDERED: HYDROmorphone INJ 0.5 MG/0.5 ML SYR IV STA (11:21)
[2023-01-04] MEDS ORDERED: LIDOCAINE 5% 1 PATCH TD STA (11:27)
[2023-01-04] MEDS ORDERED: POTASSIUM CHLORIDE CRTAB 20 MEQ TABCR PO STA (11:30)
--- NOTE | 2023-01-04 12:37 | XRay Report ---
XR ribs RT min 2V w CXR1V HISTORY: 52 years-old Male CHEST PAIN, BROKEN RIBS, HX PTX acute chest pain COMPARISON: 01/02/2023, 12/30/2022 TECHNIQUE: PA view of the chest with 4 views of the right ribs FINDINGS: Cardiomediastinal and hilar silhouettes are unchanged. Previously noted trace right pneumothorax is n ot definitively seen. Unchanged alignment of the uterus and mildly comminuted fractures of the gang tailer ior right 10th rib. No additional acute right-sided rib fractures identified. Trace right pleural eff usion suggested with mild persistent atelectasis. Surgical suture material within the abdominal right upper quadrant. IMPRESSION: 1. Unchanged alignment of the acute right posterior 10th rib fracture. 2. No pneumothorax identified by radiography. 3. Trace right pleural effusion with minimal right basilar atelectasis. ACT 112: Negative or not required by law. The above report was generated using voice recognition software. It may contain grammatical, syntax o r spelling errors. Electronically signed by: Niall Garza M.D. 01/04/2023 12:35 PM
--- NOTE | 2023-01-04 14:57 | Pharmacy Report ---
Pharmacy PK ABX Note - Date of Service January 04, 2023 - Assessment and Plan Assessment 01/04 * Vanc level obtained today, indicating that current regimen is appropriate. * Micro results: * If blood cultures are finalized and negative tomorrow, pt will likely be discharged home on PO abx. 01/03 * Mr Maxwell is a 52 year old M receiving vancomycin/Zosyn for treatment of RUE wound/cellulitis after recent gardening accident. * Orthopedic surgery consult pending. * Pertinent microbiologic data includes: R arm culture growing: gram neg bacilli x2, BCx pending * Pt received 2 days of Augmentin prior to arrival. Plan Vancomycin * Continue vanc 1500 mg IV every 12 hours * Regimen is predicted to achieve target AUC/JOVANI of 400-600 mg/L.hr * No further levels have been ordered at this time. If pt remains hospitalized and on vanc therapy, will re-consider the need for additional monitoring in 1- 2 days. Zosyn 4.5gm IV q8h Pharmacy will continue to follow and will adjust dose/frequency as necessary. Thank you. Pharmacy has transitioned to AUC monitoring for vancomycin. AUC/JOVANI is the preferred PK/PD target and is associated with decreased risk of nephrotoxicity compared to traditional trough targets.
[2023-01-04] MEDS: oxyCODONE/ACETAMINOPHEN 5mg/325mg TAB PO PRN (19:04)
[2023-01-05] MEDS: VANCOMYCIN HCL 1,500 MG in SODIUM CHLORIDE 0.9% 500 ML IV SCH (03:25)
[2023-01-05] MEDS: oxyCODONE/ACETAMINOPHEN 5mg/325mg TAB PO PRN ×2 (03:25→09:16)
[2023-01-05] MEDS: PIPERACILLIN/TAZOBACTAM 4.5 GM in DEXTROSE 5% 100 ML IV SCH ×2 (04:01→12:18)
[2023-01-05] MEDS: IBUPROFEN 200 MG TAB PO PRN ×2 (04:06→12:14)
[2023-01-05 08:20] LABS: Hematocrit (blood only) 35.9 % (42.0-52.0); Hemoglobin 12.4 g/dl (14.0-18.0); Mean Corpuscular Hemoglobin 31.6 pg (25.0-34.0); Mean Corpuscular Hgb Conc 34.5 g/dL (32.0-36.0); Mean Corpuscular Volume 91.6 fL (80.0-100.0); Platelet Count 177 K/uL (130-400); RDW Coefficient of Variation 11.9 % (11.5-14.5); RDW Standard Deviation 39.8 fL (36.4-46.3); Red Blood Count 3.92 M/uL (4.70-6.10); White Blood Count 4.19 K/ul (4.8-10.8)
[2023-01-05 08:42] LABS: BUN Creatinine Ratio 7.9 (10-20); Calcium 8.9 mg/dl (8.6-10.3); Est GFR (African American) 99.4 ml/min; Est GFR (Non-African American) 85.7 ml/min; Potassium 3.7 mmol/L (3.5-5.1)
[2023-01-05] MEDS: SERTRALINE HCL 100 MG TABLET PO SCH (09:11)
[2023-01-05] MEDS: CYANOCOBALAMIN (B-12) 500 MCG TABLET PO SCH (09:11)
[2023-01-05] MEDS: FOLIC ACID 400 MCG TAB PO SCH (09:11)
[2023-01-05] MEDS: FAMOTIDINE 20 MG in SYRINGE 3 ML IV SCH (09:17)
--- NOTE | 2023-01-05 15:28 | Discharge Summary ---
Date of Service January 05, 2023 Admission HPI Per Admitting Provider Julio Maxwell is a pleasant 52yo male with no significant past medical history presenting with RUE cellulitis. On 12/30/22 PM patient was doing some yard work when a spike aerator accidentally rolled over him. He reports that his right arm got stuck and he pulled it out from the aerator causing a wound in the right forearm as well as a puncture wound to the right back. He was seen in the ER and had the wounds thoroughly irrigated. He was treated with a tetanus shot, NSS, pain control with Tylenol, Fentanyl, Toradol and received a dose of Cefazolin. He was discharged home with Oxycodone/Acetaminophen and Augmentin. He had a CT of the chest which was noted to have a trace right apical pneumothorax. Patient returns to the ER this evening for repeat CXR to followup on the previously noted pneumothorax. He does note increased redness of the forearm with streaking up the medial arm as well as increased swelling of the forearm. He has been changing his dressings at home and has had some purulent discharge. He denies chest pain, SOB, cough or pleuritic pain. Denies fever, chills, malaise, nausea. He took a Percocet at 18:30 but is having some increased pain at present. In the ER he is afebrile, HD stable, NAD ER Course: Vancomycin Zosyn Discharge Data Allergies Allergy/AdvReac Type Severity Reaction Status Date / Time No Known Allergies Allergy Verified 01/02/23 19:14 Consultations 01/02/23 20:36 ED Decision to Admit Stat 01/02/23 23:18 Consult Orthopedic Surgery Routine Hospital Course (1) Cellulitis of forearm, right: Cellulitis of right forearm 52yo male with recent gardening accident involving a spike aerator resulting in puncture wound to right back and right forearm returns with worsening redness, swelling and streaking up the arm after being on Augmentin at home x 2 days. Patient is afebrile, HD stable and nontoxic in appearance. Wound on right arm with purulent drainage expressed. Cx from arm gram negative bacilli x 2--> Aeromonas hydrophila group, serratia marcescens on preliminary (MONITOR FINAL), resistant to augmentin Blood cultures remain NGTD, monitor for 48 hours prior to PO abx given procal to 12 WBC not elevated, no fever Ortho consulted - no I&D, continue abx, signed off Wound care Pain control -- dilaudid x 1, rib pain, lidocaine patch, incentive spirometer, turn/cough Continue IV abx Vanco/Zosyn given cx preliminary but suspect can continue IV Zosyn alone if finalized later today and plan to transition to PO abx to complete course tomorrow (2) Puncture wound: cause for cellulitis as above (3) Pneumothorax: Trace apical pneumothorax noted on CT imaging from 12/30/22, R posterior 10th rib fracture Repeat CXR on admission normal Remaining on room air but reporting rib pain today, no crepitus, checked CXR today no change in alignment of broken rib, no PTX, trace effusion/atelectasis Ordered IV pain control x 1 for now, lidocaine patch, incentive spirometer Monitor for worsening pain/follow up on imaging (4) Anxiety: Chronic. Stable Continue Clonazepam Continue Sertraline ALcohol use - Prior heavy use, most recent notes ~12pk a week Patient is a daily drinker. No history of withdrawals. Monitor AWSS protocol initiated. Given Thiamine IV x 1, started PO folate/B12 No evidence for DTs at present but willl need to monitor (5) Failure of outpatient treatment: failure of outpatient treatment due to bacteria/resistance to augmentin abx as above, will Plan continued inpatient stay, monitor cultures/tailor abx as able imaging for rib/chest discomfort given prior PTX, pain control hopeful dc tomorrow on PO FLQ if cultures finalized/blood cultures remaining negative Discharge Plan Discharge Items Patient Disposition: Home - Self-Care Reason For Visit: WOUND RUE, CELLULITIS Discharge Diagnosis: Cellulitis Goals: You have been hospitalized for an acute medical problem. During your stay at [facility], we have made an effort to correct the problem that brought you to the hospital while keeping you as comfortable as possible. Medications were used to bring your condition under control and your discharge instructions will include directions for any medications you should take after leaving the hospital. Please make sure you see your Primary Care Provider as part of your follow up plan. Activity: As commented below Non-emergency contact: Primary Care Provider Call non-emergency contact if: you have any medication questions, your symptoms worsen, your pain is concerning for you and you have a fever Follow-up/Referrals: Krissy Lance, [Primary Care Provider] - Diet: Regular Addtl Attending Provider Instructions: You have been hospitalized for ongoing cellulitis despite outpatient antibiotics with Augmentin. Cultures were obtained on admission which showed bacteria called Aeromonas hydrophilia and serratia marcescens, likely from the mechanism of injury/lawn equipment. These bacteria are RESISTANT to Augmentin, which is why they did not work initially. You were treated with IV antibiotics with Vancomycin and Zosyn while cultures were pending and evaluated by Orthopedic surgery, who did not feel you required any incision or drainage during inpatient stay, and can complete course of antibiotics. At discharge, you are being sent home on CIPROFLOXACIN 500mg by mouth TWICE daily to complete 7 day course. You have an additional 5 days of treatment to complete the course. Blood cultures have remained NEGATIVE at time of discharge and take 5 days to finalize. Regarding your rib fracture, repeat imaging did not show any evidence for pneumothorax and you should continue pain control/deep breathing and coughing, and incentive spirometer to help with healing. These usually take a month or two to heal. You should have follow up with primary care 7-10 days after discharge from the hospital to monitor your status. Please return to the ER with any worsening pain/redness/drainage, fever/chills, shortness of breath or for any other symptoms that are concerning for you. It has been a pleasure being a part of the medical team providing for you while you have been in the hospital. Take care! Pending Studies at Discharge: Yes (Blood cultures -- no growth to date) Stand-Alone Forms: [facility] [employer], Smoking Cessation Medications and DC Order Prescriptions: New ciprofloxacin HCl 500 mg tablet 500 mg PO BID 5 Days Qty: 10 0RF Continued oxycodone-acetaminophen [Percocet] 5-325 mg tablet 1 tab PO Q6H PRN (Reason: pain) Qty: 14 0RF clonazepam 0.5 mg tablet 0.5 mg PO DAILY PRN (Reason: Anxiety) sertraline 100 mg tablet 100 mg PO DAILY ibuprofen 200 mg Tablet 400 mg PO Q6H PRN (Reason: Pain) Discontinued amoxicillin-pot clavulanate 875-125 mg tablet 1 tab PO BID Qty: 14 0RF Discharge Orders: Discharge Order (Routine); Ordered 01/05/23 Ordered By: Amilcar Marquez Admission Data Admit Date/Time: 01/02/23 20:49 Attending Provider: Amilcar Marquez Admit Provider: Genesis Mcfadden Primary Care Provider: Krissy Lance Other Providers: Genesis Mcfadden ; Niall Stearns Coding Diagnoses Cellulitis of forearm, right L03.113 Puncture wound T14.8XXA Pneumothorax J93.9 Anxiety F41.9 Failure of outpatient treatment Z78.9
== END 2023-01-05 17:39 | disposition home or self-care (01) | DRG 603 ==
LOC: ED 17:21 → 3W 20:49 → SUATTDRO 20:49 → 3W 23:02